=== PATIENT | female | born 2000 | race African-American/Black ===

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

== ENCOUNTER 2020-02-03 20:17 | Emergency (ER) | payer MEDICAID ==
[~2020-02-03] VITALS: Ht 157.5 cm; Wt 52.7 kg
[2020-02-03 20:24] VITALS: BP 117/73
[2020-02-03] MEDS ORDERED: proparacaine 0.5% ophthalmic drops 15ml EACHEYE ONE (21:45)
[2020-02-03] MEDS ORDERED: TOBR5DRO2 RIGHTEYE (21:50)
== END 2020-02-03 22:10 | disposition home or self-care (01) ==
LOC: ER 20:18
DX: H10.9 Unspecified conjunctivitis (principal); M25.571 Pain in right ankle and joints of right foot; H02.849 Edema of unspecified eye, unspecified eyelid; Z79.2 Long term (current) use of antibiotics; Z79.899 Other long term (current) drug therapy
CPT/HCPCS: 99283

== ENCOUNTER 2020-11-22 16:00 | Emergency (ER) | payer MEDICAID ==
[~2020-11-22] VITALS: Ht 157.5 cm; Wt 57.1 kg
[~2020-11-22 16:00] MED LIST changes: +TOBR5DRO2 RIGHTEYE
[2020-11-22 16:51] VITALS: BP 109/67
[2020-11-22 17:43] LABS: CLARITY,URINE CLOUDY (Clear); COLOR,URINE YELLOW (Yellow); GLUCOSE, URINE NEGATIVE (Neg); KETONES,URINE NEGATIVE (Neg); LEUKOCYTE ESTERASE ,URINE SMALL (Neg); NITRITES, URINE NEGATIVE (Neg); OCCULT BLOOD,URINE NEGATIVE (Neg); PROTEIN,URINE NEGATIVE (Neg)
[2020-11-22 17:45] LABS: UA COLLECTION TYPE CLN CATCH MIDSTREAM
[2020-11-22 17:50] LABS: MUCUS STRANDS MODERATE /LPF (Neg); SQUAMOUS EPITHELIAL CELL,UR MANY /LPF (FEW)
[2020-11-22 17:51] LABS: BACTERIA,URINE 1+ /HPF (Neg); CAL OXALATE CRYSTALS FEW /HPF (NEGATIVE); RBC,URINE 0-2 /HPF (0-2)
[2020-11-22 18:52] LABS: URINE HCG NEGATIVE (NEG)
--- NOTE | 2020-11-22 20:26 | NUR ---
md went to room for pelvic exam, pt not in room and gown on gurney.
--- NOTE | 2020-11-22 20:40 | NUR ---
second check of room, pt not in room, appears to have eloped before nursing assessments and before pelvic exam
== END 2020-11-22 20:42 | disposition left against medical advice (07) ==
LOC: ER 16:00
DX: K12.1 Other forms of stomatitis (principal); Z11.3 Encounter for screening for infections with a predominantly sexual mode of transmission; Z79.899 Other long term (current) drug therapy
CPT/HCPCS: 36415; 81001; 81025; 86592; 87491; 99283; 99284

== ENCOUNTER 2021-01-17 10:56 | Emergency (ER) | payer MEDICAID ==
[~2021-01-17] VITALS: Ht 160 cm; Wt 52.0 kg
[2021-01-17 11:03] VITALS: BP 133/7
[2021-01-17 11:47] LABS: CLARITY,URINE CLOUDY (Clear); COLOR,URINE YELLOW (Yellow); GLUCOSE, URINE NEGATIVE (Neg); KETONES,URINE NEGATIVE (Neg); LEUKOCYTE ESTERASE ,URINE NEGATIVE (Neg); NITRITES, URINE NEGATIVE (Neg); OCCULT BLOOD,URINE NEGATIVE (Neg); PH,URINE 7.5 (4.8-8.0); PROTEIN,URINE NEGATIVE (Neg)
[2021-01-17 11:48] LABS: URINE HCG NEGATIVE (NEG)
[2021-01-17 11:56] LABS: UA COLLECTION TYPE NON-SPECIFIED
[2021-01-17 12:00] LABS: SQUAMOUS EPITHELIAL CELL,UR FEW /LPF (FEW)
[2021-01-17 12:03] LABS: BACTERIA,URINE FEW /HPF (Neg); RBC,URINE 0-2 /HPF (0-2); TRANSITIONAL EPI CELLS,URINE FEW /HPF
[2021-01-17 12:07] LABS: AMORPHOUS PHOSPHATES 1+
[2021-01-17] MEDS ORDERED: HYDROcodone/acetaminophen 5mg/325mg tablet PO ONE (14:20)
[2021-01-17] MEDS ORDERED: azithromycin 250mg tablet PO ONE (14:30)
[2021-01-17] MEDS ORDERED: CefTRIAXone 1000mg IM Kit (w/lidocaine diluent) IM STA (14:30)
[2021-01-17] MEDS ORDERED: PENICILLIN G BENZATHINE 2,400,000 UNIT/4 ML SYRINGE IM STA (14:30)
[2021-01-17] MEDS ORDERED: VALA100031 PO (14:35)
[2021-01-17] MEDS ORDERED: LIDOcaine 2% 10ml TOPICAL JELLY (Urojet) MM ONE (14:45)
[2021-01-17] MEDS ORDERED: LIDO5CRE18 TOP (15:28)
== END 2021-01-17 16:21 | disposition home or self-care (01) ==
LOC: ER 10:56
DX: Z11.3 Encounter for screening for infections with a predominantly sexual mode of transmission (principal); N89.8 Other specified noninflammatory disorders of vagina; R30.9 Painful micturition, unspecified; Z79.2 Long term (current) use of antibiotics; Z79.899 Other long term (current) drug therapy
CPT/HCPCS: 36415; 81001; 81025; 86592; 87088; 87252; 87491; 96372; 99284; J0561; J0696

== ENCOUNTER 2024-01-22 21:53 | Emergency (ER) | payer MEDICAID ==
[~2024-01-22] VITALS: Ht 157.5 cm; Wt 56.8 kg
[~2024-01-22 21:53] MED LIST changes: +LIDO5CRE18 TOP; +VALA100031 PO
[2024-01-22 22:03] VITALS: BP 127/77
[2024-01-22 22:05] VITALS: PULSE 117; RESP 18; TEMP 98.5; O2SAT 98
== END 2024-01-22 22:08 | disposition home or self-care (01) ==
LOC: ER 21:53
DX: T88.7XXA Unspecified adverse effect of drug or medicament, initial encounter (principal); T40.415A Adverse effect of fentanyl or fentanyl analogs, initial encounter; Z79.1 Long term (current) use of non-steroidal anti-inflammatories (NSAID); Z79.899 Other long term (current) drug therapy; Y92.89 Other specified places as the place of occurrence of the external cause
CPT/HCPCS: 99283